=== PATIENT | female | born 1970 | race Caucasian/White ===

== ENCOUNTER 2019-06-21 18:14 | Inpatient (IN) | payer SELFPAY ==
[2019-06-21] MEDS ORDERED: Alum Hydrox/Mag Hydrox/Simeth 15 ML, Lidocaine 2% 5 ML PO ONE ×2 (18:35)
[2019-06-21] MEDS ORDERED: Sodium Chloride 0.9% 1,000 ML IV ONE (18:35)
[2019-06-21] MEDS ORDERED: Sodium Chloride 0.9% 2.5 ML Syringe FLUSH PRN (18:35)
[2019-06-21] MEDS ORDERED: Sodium Chloride 0.9% 10 ML Syringe FLUSH PRN (18:35)
--- NOTE | 2019-06-21 18:35 | EDM.PDOC ---
ED HPI GENERAL MEDICAL PROBLEM - General Chief Complaint: Abdominal Pain Stated Complaint: ABD PAIN Time Seen by Provider: 06/21/19 18:35 Source of Information: Reports: Patient History Limitations: Reports: No Limitations - History of Present Illness INITIAL COMMENTS - FREE TEXT/NARRATIVE: HISTORY AND PHYSICAL: History of present illness: Patient is a 48-year-old female presents to the ED with complaint of epigastric abdominal pain since yesterday. She was seen in the ER and wanted to yesterday but was told her labs were normal and did not have any imaging done. She said she has had nausea but no vomiting. She denies diarrhea, chest pain, shortness of breath, fevers, chills. Review of systems: As per history of present illness and below otherwise all systems reviewed and negative. Past medical history: As per history of present illness and as reviewed below otherwise noncontributory. Surgical history: As per history of present illness and as reviewed below otherwise noncontributory. Social history: No reported history of drug or alcohol abuse. Family history: As per history of present illness and as reviewed below otherwise noncontributory. Physical exam: General: Patient sitting comfortably in no acute distress and nontoxic appearing HEENT: Atraumatic, normocephalic, pupils reactive, negative for conjunctival pallor or scleral icterus, mucous membranes moist, throat clear, neck supple, nontender, trachea midline. No meningeal signs. Lungs: Clear to auscultation, breath sounds equal bilaterally, chest nontender. Heart: S1S2, regular, negative for clicks, rubs, or overt murmur. Abdomen: Epigastric tenderness to palpation. Soft, nondistended. Negative for masses or hepatosplenomegaly. Negative for costovertebral tenderness. No rigidity, rebound, guarding. Pelvis: Stable nontender. Genitourinary: Deferred. Rectal: Deferred. Extremities: Atraumatic, negative for cords or calf pain. Neurovascular unremarkable. Neuro: Awake, alert, oriented. Cranial nerves II through XII unremarkable. Cerebellum unremarkable. Motor and sensory unremarkable throughout. Exam nonfocal. Notes: Patient states that she has had severe reaction to IV contrast in the form of oral burning and swelling Diagnostics: CBC, CMP, lipase, UA, CT abdomen/pelvis Therapeutics: 1L NS IV GI Cocktail 30mg toradol IV IV Zosyn Prescriptions: Impression: Acute cholecystitis, leukocytosis Plan: Discussed with Dr. Ball, patient admitted to observation for IV antibiotics. Definitive disposition and diagnosis as appropriate pending reevaluation and review of above. abdomen Pain Score (Numeric/FACES): 8 - Related Data Allergies Allergy/AdvReac Type Severity Reaction Status Date / Time No Known Allergies Allergy Verified 06/21/19 18:58 Home Meds: Home Meds Dextroamphetamine/Amphetamine [Adderall] 30 mg PO DAILY 06/21/19 [History] Levothyroxine Sodium [Synthroid] 175 mcg PO DAILY 06/21/19 [History] Losartan [Cozaar] 50 mg PO DAILY 06/21/19 [History] hydroCHLOROthiazide [Hydrochlorothiazide] 25 mg PO DAILY 06/21/19 [History] metFORMIN HCl [Metformin HCl] 1,000 mg PO BID 06/21/19 [History] ED ROS GENERAL - Review of Systems Review Of Systems: ROS reveals no pertinent complaints other than HPI. ED EXAM, GI/ABD - Physical Exam Exam: See Below (see dictation) Course - Vital Signs Last Recorded V/S: Last Vital Signs Temp 98.5 F 06/21/19 18:50 Pulse 93 06/21/19 20:12 Resp 16 06/21/19 20:12 BP 154/72 H 06/21/19 20:12 Pulse Ox 95 06/21/19 20:12 - Orders/Labs/Meds Orders: Active Orders 24 hr Category Date Time Status Sodium Chloride 0.9% [Saline Flush] Med 06/21/19 18:35 Active 10 ml FLUSH ASDIRECTED PRN Sodium Chloride 0.9% [Saline Flush] Med 06/21/19 18:35 Active 2.5 ml FLUSH ASDIRECTED PRN Saline Lock Insert [OM.PC] Stat Oth 06/21/19 18:34 Ordered Medication Orders Sodium Chloride (Saline Flush) 10 ml FLUSH ASDIRECTED PRN PRN Reason: Keep Vein Open Sodium Chloride (Saline Flush) 2.5 ml FLUSH ASDIRECTED PRN PRN Reason: Keep Vein Open Labs: Laboratory Tests 06/21/19 06/21/19 06/21/19 Range/Units 18:50 18:50 19:20 WBC 19.10 H (4.0-11.0) K/uL RBC 4.80 (4.30-5.90) M/uL Hgb 14.2 (12.0-16.0) g/dL Hct 40.1 (36.0-46.0) % MCV 83.5 (80.0-98.0) fL MCH 29.6 (27.0-32.0) pg MCHC 35.4 (31.0-37.0) g/dL RDW Std Deviation 38.7 (28.0-62.0) fl RDW Coeff of [place] 13 (11.0-15.0) % Plt Count 280 (150-400) K/uL MPV 9.10 (7.40-12.00) fL Neut % (Auto) 80.8 H (48.0-80.0) % Lymph % (Auto) 9.8 L (16.0-40.0) % [place] % (Auto) 8.6 (0.0-15.0) % Eos % (Auto) 0.6 (0.0-7.0) % Baso % (Auto) 0.2 (0.0-1.5) % Neut # (Auto) 15.4 H (1.4-5.7) K/uL Lymph # (Auto) 1.9 (0.6-2.4) K/uL [place] # (Auto) 1.6 H (0.0-0.8) K/uL Eos # (Auto) 0.1 (0.0-0.7) K/uL Baso # (Auto) 0.0 (0.0-0.1) K/uL Nucleated RBC % 0.0 /100WBC Nucleated RBCs # 0 K/uL Sodium 136 (136-145) mmol/L Potassium 4.1 (3.5-5.1) mmol/L Chloride 99 (98-107) mmol/L Carbon Dioxide 29.0 (21.0-32.0) mmol/L BUN 10 (7.0-18.0) mg/dL Creatinine 1.0 (0.6-1.0) mg/dL Est Cr Clr Drug Dosing 70.16 mL/min Estimated GFR (MDRD) 59.4 ml/min Glucose 169 H (74-106) mg/dL Calcium 8.9 (8.5-10.1) mg/dL Total Bilirubin 1.0 (0.2-1.0) mg/dL AST 23 (15-37) IU/L ALT 46 (14-63) IU/L Alkaline Phosphatase 64 (46-116) U/L Troponin I < 0.050 (0.000-0.056) ng/mL Total Protein 7.7 (6.4-8.2) g/dL Albumin 3.7 (3.4-5.0) g/dL Globulin 4.0 (2.6-4.0) g/dL Albumin/Globulin Ratio 0.9 (0.9-1.6) Lipase 94 (73-393) U/L Urine Color YELLOW Urine Appearance CLEAR Urine pH 8.5 H (5.0-8.0) Ur Specific [place] 1.010 (1.001-1.035) Urine Protein NEGATIVE (NEGATIVE) mg/dL Urine Glucose (UA) NEGATIVE (NEGATIVE) mg/dL Urine Ketones NEGATIVE (NEGATIVE) mg/dL Urine Occult Blood NEGATIVE (NEGATIVE) Urine Nitrite NEGATIVE (NEGATIVE) Urine Bilirubin NEGATIVE (NEGATIVE) Urine Urobilinogen 0.2 (<2.0) EU/dL Ur Leukocyte Esterase NEGATIVE (NEGATIVE) Meds: Medications Generic Name Dose Route Start Last Admin Trade Name Freq PRN Reason Stop Dose Admin Sodium Chloride 10 ml 06/21/19 18:35 Saline Flush FLUSH ASDIRECTED PRN Keep Vein Open Sodium Chloride 2.5 ml 06/21/19 18:35 Saline Flush FLUSH ASDIRECTED PRN Keep Vein Open Discontinued Medications Generic Name Dose Route Start Last Admin Trade Name Freq PRN Reason Stop Dose Admin Al Hydroxide/Mg Hydroxide 15 0 ml 06/21/19 18:35 06/21/19 19:13 ml/ Lidocaine HCl 5 ml PO 06/21/19 18:36 1 each ONETIME ONE Administration Sodium Chloride 1,000 mls @ 999 mls/hr 06/21/19 18:35 06/21/19 19:11 Normal Saline IV 06/21/19 19:35 999 mls/hr STAT ONE Administration Ketorolac Tromethamine 30 mg 06/21/19 20:13 Toradol IVPUSH 06/21/19 20:14 ONETIME ONE Departure - Departure Time of Disposition: 20:43 Disposition: Refer to Observation Condition: Good Clinical Impression: Acute cholecystitis, Leukocytosis - Discharge Information Referrals: PCP,Not In Area [Primary Care Provider] - Forms: ED Department Discharge - My Orders Last 24 Hours: My Active Orders 06/21/19 18:34 Saline Lock Insert [OM.PC] Stat 06/21/19 18:35 Sodium Chloride 0.9% [Saline Flush] 10 ml FLUSH ASDIRECTED PRN Sodium Chloride 0.9% [Saline Flush] 2.5 ml FLUSH ASDIRECTED PRN - Assessment/Plan Last 24 Hours: My Active Orders 06/21/19 18:34 Saline Lock Insert [OM.PC] Stat 06/21/19 18:35 Sodium Chloride 0.9% [Saline Flush] 10 ml FLUSH ASDIRECTED PRN Sodium Chloride 0.9% [Saline Flush] 2.5 ml FLUSH ASDIRECTED PRN
[2019-06-21 19:31] LABS: BLOOD UREA NITROGEN,BUN 10 mg/dL (7.0-18.0); CHLORIDE,CL 99 mmol/L (98-107); GLUCOSE RANDOM 169 mg/dL (74-106); LIPASE 94 U/L (73-393); POTASSIUM,K 4.1 mmol/L (3.5-5.1); SODIUM,NA 136 mmol/L (136-145)
[2019-06-21] MEDS ORDERED: Ketorolac 30 MG/ML SDV IVPUSH ONE (20:13)
--- NOTE | 2019-06-21 20:16 | CT ---
INDICATION: Right upper quadrant abdominal pain. COMPARISON: None available TECHNIQUE: CT examination of the abdomen and pelvis was performed without contrast enhancement using 3 mm thick axial sections from the lung bases through the pubic symphysis. Oral contrast was not administered. Please note that all CT scans at this facility use dose modulation, iterative reconstruction, and/or weight-based dosing when appropriate to reduce radiation dose to as low as reasonably achievable. FINDINGS: In the abdomen, the liver is low in density, representing fatty infiltration. The liver is mildly and enlarged, measuring 21.7 centimeters in length. There is no sign of mass. The spleen, pancreas and adrenals are normal in appearance. There is a tiny nonobstructive calculus in the lower pole of the right kidney. There is a nonobstructive 4 millimeter calculus in the interpolar left kidney. The unenhanced kidneys are otherwise normal in appearance. There is no sign of hydronephrosis or hydroureter. There is no sign of ureteral calculi. The gallbladder is moderately distended, there is prominent thickening of the gallbladder wall, measuring up to 10 millimeters in thickness. There is mild pericholecystic inflammatory stranding. The findings suggest acute cholecystitis. I do not see any definite calculi in the gallbladder, but CT has a low sensitivity for cholelithiasis. No sign of biliary ductal dilatation. The abdominal aorta is normal in caliber with no sign of dilatation. There is no sign of retroperitoneal mass or adenopathy. The stomach, loops of small bowel, and colon in the abdomen are normal in appearance. In the pelvis, the appendix is normal in appearance with no sign of inflammatory process. The loops of small bowel and colon in the pelvis are normal in appearance. The uterus and adnexal regions are normal in appearance. The urinary bladder is normal in appearance. There is no sign of pelvic or inguinal mass or adenopathy. The lung bases are clear. The osseous structures are normal in appearance for the patient`s age. IMPRESSION: CT of the abdomen shows findings strongly suggestive of acute cholecystitis. No definite cholelithiasis seen. No sign of biliary ductal dilatation. The mild enlargement of the fatty liver. No sign of any hepatic masses. Bilateral nonobstructive nephrolithiasis with the largest calculus seen in the left kidney measuring 4 millimeters in diameter. Normal CT of the pelvis without contrast. Please note that all CT scans at this facility use dose modulation, iterative reconstruction, and/or weight-based dosing when appropriate to reduce radiation dose to as low as reasonably achievable. Dictated by Shaun Solis MD @ Jun 21 2019 8:08PM Signed by Dr. Shaun Solis @ Jun 21 2019 8:15PM
[2019-06-21] MEDS ORDERED: Piperacillin/Tazobactam 3.375 GM in Sodium Chloride 0.9% 50 ML IV ONE (20:31)
[2019-06-21] MEDS ORDERED: Ondansetron 4 MG/2 ML SDV IVPUSH PRN (21:36)
--- NOTE | 2019-06-21 21:38 | PCM.HP.2 ---
H&P History of Present Illness - General Date of Service: 06/21/19 Admit Problem/Dx: Admission Diagnosis/Problem Admission Diagnosis/Problem Acute cholecystitis - History of Present Illness Initial Comments - Free Text/Narative: 48 yo female who presents with two day history of abdominal pain, nausea and vomiting. She reports fevers and myalgias. IN the ED she was noted to have WBC of 19,[address] scan strongly suggestive of acute cholecystitis. abdomen Pain Score (Numeric/FACES): 8 - Related Data Allergies/Adverse Reactions: Allergies Allergy/AdvReac Type Severity Reaction Status Date / Time No Known Allergies Allergy Verified 06/21/19 22:27 Home Medications: Home Meds Cholecalciferol (Vitamin D3) [Vitamin D3] 1 tab PO DAILY 06/21/19 [History] Dextroamphetamine/Amphetamine [Adderall] 30 mg PO DAILY 06/21/19 [History] Levothyroxine Sodium [Synthroid] 175 mcg PO DAILY 06/21/19 [History] Losartan [Cozaar] 50 mg PO DAILY 06/21/19 [History] hydroCHLOROthiazide [Hydrochlorothiazide] 50 mg PO DAILY 06/21/19 [History] metFORMIN HCl [Metformin HCl] 1,000 mg PO BID 06/21/19 [History] Past Medical History Cardiovascular History: Reports: Hypertension Psychiatric History: Reports: ADD Endocrine/Metabolic History: Reports: Hypothyroidism, Other (See Below) Other Endocrine/Metabolic History: pre-diabetes Oncologic (Cancer) History: Reports: Thyroid - Past Surgical History Endocrine Surgical History: Reports: Thyroidectomy Musculoskeletal Surgical History: Reports: Shoulder Surgery Social & Family History - Family History Family Medical History: Noncontributory - Tobacco Use Smoking Status *Q: Never Smoker - Recreational Drug Use Recreational Drug Use: No H&P Review of Systems - Review of Systems: Review Of Systems: ROS reveals no pertinent complaints other than HPI. Exam - Exam Exam: See Below - Vital Signs Vital Signs: Last Vital Signs Temp 36.9 C 06/21/19 18:50 Pulse 93 06/21/19 20:12 Resp 16 06/21/19 20:12 BP 154/72 H 06/21/19 20:12 Pulse Ox 95 06/21/19 20:12 Weight: 86.183 kg - Exam General: Alert, Oriented HEENT: Mucosa Moist & [place] Neck: Supple, Trachea Midline Lungs: Clear to Auscultation, Normal Respiratory Effort Cardiovascular: Regular Rate, Regular Rhythm GI/Abdominal Exam: Normal Bowel Sounds, Soft, No Distention, Tender (RUQ tenderness). No: Rigid, Rebound Extremities: Non-Tender, No Pedal Edema Skin: Warm, Dry, Intact - Patient Data Lab Results Last 24 hrs: Laboratory Results - last 24 hr 06/21/19 06/21/19 06/21/19 Range/Units 18:50 18:50 19:20 WBC 19.10 H (4.0-11.0) K/uL RBC 4.80 (4.30-5.90) M/uL Hgb 14.2 (12.0-16.0) g/dL Hct 40.1 (36.0-46.0) % MCV 83.5 (80.0-98.0) fL MCH 29.6 (27.0-32.0) pg MCHC 35.4 (31.0-37.0) g/dL RDW Std Deviation 38.7 (28.0-62.0) fl RDW Coeff of [place] 13 (11.0-15.0) % Plt Count 280 (150-400) K/uL MPV 9.10 (7.40-12.00) fL Neut % (Auto) 80.8 H (48.0-80.0) % Lymph % (Auto) 9.8 L (16.0-40.0) % [place] % (Auto) 8.6 (0.0-15.0) % Eos % (Auto) 0.6 (0.0-7.0) % Baso % (Auto) 0.2 (0.0-1.5) % Neut # (Auto) 15.4 H (1.4-5.7) K/uL Lymph # (Auto) 1.9 (0.6-2.4) K/uL [place] # (Auto) 1.6 H (0.0-0.8) K/uL Eos # (Auto) 0.1 (0.0-0.7) K/uL Baso # (Auto) 0.0 (0.0-0.1) K/uL Nucleated RBC % 0.0 /100WBC Nucleated RBCs # 0 K/uL Sodium 136 (136-145) mmol/L Potassium 4.1 (3.5-5.1) mmol/L Chloride 99 (98-107) mmol/L Carbon Dioxide 29.0 (21.0-32.0) mmol/L BUN 10 (7.0-18.0) mg/dL Creatinine 1.0 (0.6-1.0) mg/dL Est Cr Clr Drug Dosing 70.16 mL/min Estimated GFR (MDRD) 59.4 ml/min Glucose 169 H (74-106) mg/dL Calcium 8.9 (8.5-10.1) mg/dL Total Bilirubin 1.0 (0.2-1.0) mg/dL AST 23 (15-37) IU/L ALT 46 (14-63) IU/L Alkaline Phosphatase 64 (46-116) U/L Troponin I < 0.050 (0.000-0.056) ng/mL Total Protein 7.7 (6.4-8.2) g/dL Albumin 3.7 (3.4-5.0) g/dL Globulin 4.0 (2.6-4.0) g/dL Albumin/Globulin Ratio 0.9 (0.9-1.6) Lipase 94 (73-393) U/L Urine Color YELLOW Urine Appearance CLEAR Urine pH 8.5 H (5.0-8.0) Ur Specific [place] 1.010 (1.001-1.035) Urine Protein NEGATIVE (NEGATIVE) mg/dL Urine Glucose (UA) NEGATIVE (NEGATIVE) mg/dL Urine Ketones NEGATIVE (NEGATIVE) mg/dL Urine Occult Blood NEGATIVE (NEGATIVE) Urine Nitrite NEGATIVE (NEGATIVE) Urine Bilirubin NEGATIVE (NEGATIVE) Urine Urobilinogen 0.2 (<2.0) EU/dL Ur Leukocyte Esterase NEGATIVE (NEGATIVE) Result Diagrams: 06/22/19 06:23 06/22/19 06:23 Problem List Initiated/Reviewed/Updated: Yes Orders Last 24hrs: Active Orders 24 hr Category Date Time Status Admission Status [Patient Status] [ADT] Stat ADT 06/21/19 20:54 Active CULTURE BLOOD [BC] Stat Lab 06/21/19 21:29 Ordered CULTURE BLOOD [BC] Stat Lab 06/21/19 21:29 Ordered LACTATE WITH REFLEX [BG] Stat Lab 06/21/19 21:26 Ordered HYDROmorphone [Dilaudid] Med 06/21/19 21:23 Ordered 0.5 mg IVPUSH Q3H PRN Piperacillin/Tazobactam [Piperacil-Tazobact] 3.375 gm Med 06/22/19 02:00 Ordered Sodium Chloride 0.9% [Normal Saline] 50 ml IV Q6H Sodium Chloride 0.9% [Saline Flush] Med 06/21/19 18:35 Active 10 ml FLUSH ASDIRECTED PRN Sodium Chloride 0.9% [Saline Flush] Med 06/21/19 18:35 Active 2.5 ml FLUSH ASDIRECTED PRN Blood Culture x2 Reflex Set [OM.PC] Stat Oth 06/21/19 21:29 Ordered Saline Lock Insert [OM.PC] Stat Oth 06/21/19 18:34 Ordered Medication Orders Hydromorphone HCl (Dilaudid) 0.5 mg IVPUSH Q3H PRN PRN Reason: Pain Piperacillin Sod/Tazobactam (Sod 3.375 gm/ Sodium Chloride) 50 mls @ 100 mls/ hr IV Q6H [place] Sodium Chloride (Saline Flush) 10 ml FLUSH ASDIRECTED PRN PRN Reason: Keep Vein Open Sodium Chloride (Saline Flush) 2.5 ml FLUSH ASDIRECTED PRN PRN Reason: Keep Vein Open Assessment/Plan Comment:: 48 yo female admitted for sepsis from cholecystitis. Lactic acid and blood cultures ordered. We will treat with IV fluid resuscitation and Zosyn. Will check ultrasound of RUQ. Heart rate has improved with IV fluids given in ED.
[2019-06-21] MEDS: Sodium Chloride 0.9% 1,000 ML IV SCH (22:21)
[2019-06-21] MEDS: Heparin Sodium 5,000 Units/ML Vial SUBCUT SCH (22:21)
[2019-06-21] MEDS: HYDROmorphone 1 MG/ML Syringe IVPUSH PRN (22:46)
[2019-06-22] MEDS: Piperacillin/Tazobactam 3.375 GM in Sodium Chloride 0.9% 50 ML IV SCH ×4 (01:59→20:31)
[2019-06-22] MEDS: HYDROmorphone 1 MG/ML Syringe IVPUSH PRN ×4 (01:59→22:09)
[2019-06-22] MEDS: Heparin Sodium 5,000 Units/ML Vial SUBCUT SCH ×3 (06:07→20:46)
[2019-06-22] MEDS: Sodium Chloride 0.9% 1,000 ML IV SCH ×3 (06:09→23:53)
[2019-06-22 07:01] LABS: CARBON DIOXIDE,CO2 26.5 mmol/L (21.0-32.0); POTASSIUM,K 3.8 mmol/L (3.5-5.1)
--- NOTE | 2019-06-22 08:55 | US ---
INDICATION: RUQ PAINCHOLECYSTITIS HISTORY: Abnormal CT scan. Cholecystitis is packed it. COMPARISON: CT of the abdomen and pelvis, 06/21/2019. TECHNIQUE: Ultrasound of the abdomen limited. FINDINGS: Pancreas is largely obscured, and this is secondary to bowel gas. There is diffuse hepatic steatosis. Gallstones, with gallbladder wall thickening. Gallbladder wall measures up to 9 mm. There is pericholecystic fluid. Positive sonographic Demarco`s sign. The extrahepatic common duct measures 4 mm at the adriel hepatis. Diffuse hepatic steatosis. No solid hepatic mass. Right kidney is negative for hydronephrosis or solid mass. No perinephric fluid collection. Right kidney measures 11.4 cm in length. IMPRESSION: 1. Cholelithiasis, with a positive sonographic Demarco`s sign, gallbladder wall thickening, and either pericholecystic fluid or intramural edema. 2. Findings are consistent with cholecystitis. 3. Normal caliber biliary tree. Dictated by Collin Yan MD @ 06/22/2019 8:53:41 AM Dictated by: Collin Yan MD @ 06/22/2019 08:53:49 (Electronically Signed)
--- NOTE | 2019-06-22 14:00 | PCM.SN ---
- Free Text/Narrative Note: Pt seen, chart reviewed; likely cholecystitis without obstruction; would cool down w iv abx as you are doing, and tentatively schedule for surg after 48 hrs, ie. Thursday morning; pls hole subq heparin after morning dose tomorrow; and ok to put on full liquid diet, low fat, tomorrow, then nPO after midnight for surg on Thu; thanks for the consult and care of this nice patient; [id number]
[2019-06-22] MEDS: Acetaminophen 325 MG Tab PO PRN ×2 (15:22→20:36)
--- NOTE | 2019-06-22 16:06 | PCM.PN ---
- General Info Date of Service: 06/22/19 Subjective Update: 48 y/o female admitted for acute cholecystitis. This morning, patient's abdominal pain had decreased but still worse with movement. Denies any chest pain, dyspnea, dysuria, diarrhea. - Patient Data Vitals - Most Recent: Last Vital Signs Temp 37 C 06/22/19 13:00 Pulse 102 H 06/22/19 13:00 Resp 20 06/22/19 13:00 BP 106/50 L 06/22/19 13:00 Pulse Ox 92 L 06/22/19 13:00 Weight - Most Recent: 84.822 kg I&O - Last 24 Hours: Intake & Output 06/22/19 06/22/19 06/22/19 06:59 14:59 22:59 Intake Total 737 100 980 Output Total 150 1200 Balance 587 100 -220 Lab Results Last 24 Hours: Laboratory Results - last 24 hr 06/21/19 06/21/19 06/21/19 Range/Units 18:50 18:50 19:20 WBC 19.10 H (4.0-11.0) K/uL RBC 4.80 (4.30-5.90) M/uL Hgb 14.2 (12.0-16.0) g/dL Hct 40.1 (36.0-46.0) % MCV 83.5 (80.0-98.0) fL MCH 29.6 (27.0-32.0) pg MCHC 35.4 (31.0-37.0) g/dL RDW Std Deviation 38.7 (28.0-62.0) fl RDW Coeff of [place] 13 (11.0-15.0) % Plt Count 280 (150-400) K/uL MPV 9.10 (7.40-12.00) fL Neut % (Auto) 80.8 H (48.0-80.0) % Lymph % (Auto) 9.8 L (16.0-40.0) % [place] % (Auto) 8.6 (0.0-15.0) % Eos % (Auto) 0.6 (0.0-7.0) % Baso % (Auto) 0.2 (0.0-1.5) % Neut # (Auto) 15.4 H (1.4-5.7) K/uL Lymph # (Auto) 1.9 (0.6-2.4) K/uL [place] # (Auto) 1.6 H (0.0-0.8) K/uL Eos # (Auto) 0.1 (0.0-0.7) K/uL Baso # (Auto) 0.0 (0.0-0.1) K/uL Nucleated RBC % 0.0 /100WBC Nucleated RBCs # 0 K/uL Lactate (0.20-2.00) mmol/L Sodium 136 (136-145) mmol/L Potassium 4.1 (3.5-5.1) mmol/L Chloride 99 (98-107) mmol/L Carbon Dioxide 29.0 (21.0-32.0) mmol/L BUN 10 (7.0-18.0) mg/dL Creatinine 1.0 (0.6-1.0) mg/dL Est Cr Clr Drug Dosing 70.16 mL/min Estimated GFR (MDRD) 59.4 ml/min Glucose 169 H (74-106) mg/dL Calcium 8.9 (8.5-10.1) mg/dL Total Bilirubin 1.0 (0.2-1.0) mg/dL AST 23 (15-37) IU/L ALT 46 (14-63) IU/L Alkaline Phosphatase 64 (46-116) U/L Troponin I < 0.050 (0.000-0.056) ng/mL Total Protein 7.7 (6.4-8.2) g/dL Albumin 3.7 (3.4-5.0) g/dL Globulin 4.0 (2.6-4.0) g/dL Albumin/Globulin Ratio 0.9 (0.9-1.6) Lipase 94 (73-393) U/L Urine Color YELLOW Urine Appearance CLEAR Urine pH 8.5 H (5.0-8.0) Ur Specific [place] 1.010 (1.001-1.035) Urine Protein NEGATIVE (NEGATIVE) mg/dL Urine Glucose (UA) NEGATIVE (NEGATIVE) mg/dL Urine Ketones NEGATIVE (NEGATIVE) mg/dL Urine Occult Blood NEGATIVE (NEGATIVE) Urine Nitrite NEGATIVE (NEGATIVE) Urine Bilirubin NEGATIVE (NEGATIVE) Urine Urobilinogen 0.2 (<2.0) EU/dL Ur Leukocyte Esterase NEGATIVE (NEGATIVE) 06/21/19 06/22/19 06/22/19 Range/Units 21:47 01:01 06:23 WBC 15.43 H (4.0-11.0) K/uL RBC 4.36 (4.30-5.90) M/uL Hgb 13.0 (12.0-16.0) g/dL Hct 37.0 (36.0-46.0) % MCV 84.9 (80.0-98.0) fL MCH 29.8 (27.0-32.0) pg MCHC 35.1 (31.0-37.0) g/dL RDW Std Deviation 39.2 (28.0-62.0) fl RDW Coeff of [place] 13 (11.0-15.0) % Plt Count 234 (150-400) K/uL MPV 8.90 (7.40-12.00) fL Neut % (Auto) 81.6 H (48.0-80.0) % Lymph % (Auto) 9.7 L (16.0-40.0) % [place] % (Auto) 7.8 (0.0-15.0) % Eos % (Auto) 0.8 (0.0-7.0) % Baso % (Auto) 0.1 (0.0-1.5) % Neut # (Auto) 12.6 H (1.4-5.7) K/uL Lymph # (Auto) 1.5 (0.6-2.4) K/uL [place] # (Auto) 1.2 H (0.0-0.8) K/uL Eos # (Auto) 0.1 (0.0-0.7) K/uL Baso # (Auto) 0.0 (0.0-0.1) K/uL Nucleated RBC % 0.0 /100WBC Nucleated RBCs # 0 K/uL Lactate 2.3 H 1.1 (0.20-2.00) mmol/L Sodium (136-145) mmol/L Potassium (3.5-5.1) mmol/L Chloride (98-107) mmol/L Carbon Dioxide (21.0-32.0) mmol/L BUN (7.0-18.0) mg/dL Creatinine (0.6-1.0) mg/dL Est Cr Clr Drug Dosing mL/min Estimated GFR (MDRD) ml/min Glucose (74-106) mg/dL Calcium (8.5-10.1) mg/dL Total Bilirubin (0.2-1.0) mg/dL AST (15-37) IU/L ALT (14-63) IU/L Alkaline Phosphatase (46-116) U/L Troponin I (0.000-0.056) ng/mL Total Protein (6.4-8.2) g/dL Albumin (3.4-5.0) g/dL Globulin (2.6-4.0) g/dL Albumin/Globulin Ratio (0.9-1.6) Lipase (73-393) U/L Urine Color Urine Appearance Urine pH (5.0-8.0) Ur Specific [place] (1.001-1.035) Urine Protein (NEGATIVE) mg/dL Urine Glucose (UA) (NEGATIVE) mg/dL Urine Ketones (NEGATIVE) mg/dL Urine Occult Blood (NEGATIVE) Urine Nitrite (NEGATIVE) Urine Bilirubin (NEGATIVE) Urine Urobilinogen (<2.0) EU/dL Ur Leukocyte Esterase (NEGATIVE) 06/22/19 Range/Units 06:23 WBC (4.0-11.0) K/uL RBC (4.30-5.90) M/uL Hgb (12.0-16.0) g/dL Hct (36.0-46.0) % MCV (80.0-98.0) fL MCH (27.0-32.0) pg MCHC (31.0-37.0) g/dL RDW Std Deviation (28.0-62.0) fl RDW Coeff of [place] (11.0-15.0) % Plt Count (150-400) K/uL MPV (7.40-12.00) fL Neut % (Auto) (48.0-80.0) % Lymph % (Auto) (16.0-40.0) % [place] % (Auto) (0.0-15.0) % Eos % (Auto) (0.0-7.0) % Baso % (Auto) (0.0-1.5) % Neut # (Auto) (1.4-5.7) K/uL Lymph # (Auto) (0.6-2.4) K/uL [place] # (Auto) (0.0-0.8) K/uL Eos # (Auto) (0.0-0.7) K/uL Baso # (Auto) (0.0-0.1) K/uL Nucleated RBC % /100WBC Nucleated RBCs # K/uL Lactate (0.20-2.00) mmol/L Sodium 139 (136-145) mmol/L Potassium 3.8 (3.5-5.1) mmol/L Chloride 103 (98-107) mmol/L Carbon Dioxide 26.5 (21.0-32.0) mmol/L BUN 10 (7.0-18.0) mg/dL Creatinine 1.1 H (0.6-1.0) mg/dL Est Cr Clr Drug Dosing 63.78 mL/min Estimated GFR (MDRD) 53.2 ml/min Glucose 153 H (74-106) mg/dL Calcium 7.6 L (8.5-10.1) mg/dL Total Bilirubin 1.3 H (0.2-1.0) mg/dL AST 18 (15-37) IU/L ALT 38 (14-63) IU/L Alkaline Phosphatase 54 (46-116) U/L Troponin I (0.000-0.056) ng/mL Total Protein 6.3 L (6.4-8.2) g/dL Albumin 3.1 L (3.4-5.0) g/dL Globulin 3.2 (2.6-4.0) g/dL Albumin/Globulin Ratio 1.0 (0.9-1.6) Lipase (73-393) U/L Urine Color Urine Appearance Urine pH (5.0-8.0) Ur Specific [place] (1.001-1.035) Urine Protein (NEGATIVE) mg/dL Urine Glucose (UA) (NEGATIVE) mg/dL Urine Ketones (NEGATIVE) mg/dL Urine Occult Blood (NEGATIVE) Urine Nitrite (NEGATIVE) Urine Bilirubin (NEGATIVE) Urine Urobilinogen (<2.0) EU/dL Ur Leukocyte Esterase (NEGATIVE) Med Orders - Current: Current Medications Acetaminophen (Tylenol) 650 mg PO Q4H PRN PRN Reason: Pain Last Admin: 06/22/19 15:22 Dose: 650 mg Heparin Sodium (Porcine) (Heparin Sodium) 5,000 units SUBCUT Q8H HARLE[facility] Last Admin: 06/22/19 13:41 Dose: 5,000 units Hydromorphone HCl (Dilaudid) 0.5 mg IVPUSH Q3H PRN PRN Reason: Pain Last Admin: 06/22/19 13:23 Dose: 0.5 mg Piperacillin Sod/Tazobactam (Sod 3.375 gm/ Sodium Chloride) 50 mls @ 100 mls/ hr IV Q6H [facility] Last Admin: 06/22/19 14:26 Dose: 100 mls/hr Sodium Chloride (Normal Saline) 1,000 mls @ 125 mls/hr IV ASDIRECTED HARLEEN Last Admin: 06/22/19 15:24 Dose: 125 mls/hr Ondansetron HCl (Zofran) 4 mg IVPUSH Q4H PRN PRN Reason: Nausea Sodium Chloride (Saline Flush) 10 ml FLUSH ASDIRECTED PRN PRN Reason: Keep Vein Open Sodium Chloride (Saline Flush) 2.5 ml FLUSH ASDIRECTED PRN PRN Reason: Keep Vein Open Discontinued Medications Al Hydroxide/Mg Hydroxide 15 (ml/ Lidocaine HCl 5 ml) 0 ml PO ONETIME ONE Stop: 06/21/19 18:36 Last Admin: 06/21/19 19:13 Dose: 1 each Sodium Chloride (Normal Saline) 1,000 mls @ 999 mls/hr IV STAT ONE Stop: 06/21/19 19:35 Last Admin: 06/21/19 19:11 Dose: 999 mls/hr Piperacillin Sod/Tazobactam (Sod 3.375 gm/ Sodium Chloride) 50 mls @ 100 mls/ hr IV ONETIME ONE Stop: 06/21/19 21:00 Last Admin: 06/21/19 21:00 Dose: 100 mls/hr Ketorolac Tromethamine (Toradol) 30 mg IVPUSH ONETIME ONE Stop: 06/21/19 20:14 Last Admin: 06/21/19 21:00 Dose: 30 mg - Exam General: Alert, Oriented, Cooperative Lungs: Clear to Auscultation. No: Crackles, Wheezing Cardiovascular: Regular Rhythm, Tachycardia GI/Abdominal Exam: Other (Tender in RUQ. No rebound. Active bowel sounds.) Extremities: No Pedal Edema Skin: Warm, Dry - Problem List Review Problem List Initiated/Reviewed/Updated: Yes - My Orders Last 24 Hours: My Active Orders 06/22/19 11:40 Notify Provider Consults [RC] ASDIRECTED Consult to Physician [CONS] Routine - Plan Plan:: A: 1. Sepsis 2/2 acute cholecystitis 2. Leukocytosis, improving P: 1. Acute cholecystitis- consulted with Dr. Coronel, General Surgery. He will plan to perform cholecystectomy on Thursday. In the meantime, patient will remain NPO only ice chips. Continue pain control, IV fluids and Zosyn. Dispo: pending improvement in abdominal pain.
--- NOTE | 2019-06-22 17:57 | CONS ---
DATE OF CONSULTATION: DATE OF : 1970 PRIMARY CARE PHYSICIAN: Christie BECERRIL REASON FOR CONSULTATION: Consult was called and the patient is seen shortly after. Concerning question is acute cholecystitis. HISTORY OF PRESENT ILLNESS: The patient is a 48-year-old lady with history of thyroid cancer, on thyroid supplement, complained about 3-day history of acute onset of right upper quadrant pain radiating to the back. The patient denied prior episode and denied jaundice, dark urine, and white stool. She had been in the emergency room yesterday and workup included CAT scan and ultrasound, which revealed thickened gallbladder wall, gallstone, and pericholecystic fluid. White count is 15, T.bilirubin is 1.3. AST and ALT are 18 and 38, alkaline phosphatase is 54. Surgery was consulted for further management. ALLERGIES: Please refer to nursing note for details. MEDICATIONS: Please refer to nursing note for details. FAMILY HISTORY: Noncontributory. SOCIAL HISTORY: Patient denies tobacco, alcohol abuse. PAST MEDICAL HISTORY: Significant for thyroid cancer, status post total thyroid resection with nuclear ablation. Denied PA, CVA, hypertension. The patient also is a diabetic, on 2 g metformin everyday. PAST SURGICAL HISTORY: 1. Thyroid surgery. 2. Normal vaginal delivery x2. 3. Left shoulder surgery. 4. Ovarian cystectomy x2. PHYSICAL EXAMINATION: GENERAL: A very pleasant lady, smiled to the doctor, in no acute distress. HEENT: Normocephalic and atraumatic. Sclerae anicteric. LUNGS: Clear to auscultation. HEART: Regular rate and rhythm. ABDOMEN: Soft, nondistended. No pulsating tender midline abdominal structure, and no surgical scar. No hernia. Exquisite tenderness on the right lower quadrant, no rebound tenderness. LABORATORY DATA: White count 15, platelet 230. Lactate is 1.1. Potassium is 3.8, BUN is 10, creatinine is 1.1, glucose is 153, T. bilirubin is 1.3. AST and ALT are 18 and 38, alkaline phosphatase is 54, lipase is 94. Ultrasound report: Cholelithiasis with pericholecystic fluid and cholestatic fluid, normal caliber biliary tree. CAT scan, mild enlargement with fatty liver and nonobstructing kidney stone. IMPRESSION: Physical examination and imaging study suggest possible cholecystitis with wall thickening to about 9 mm. The patient would benefit from IV antibiotic cool down the gallbladder and we will tentatively put the patient's surgery on Thursday provided the patient responds to antibiotic and pain management and benefit is to proceed with gallbladder surgery. Risks to include bleeding, infection, and bile leak plus damage to reproductive organ. The patient concurred to proceed as planned. Thanks for the consult and care of this present patient. We will tentatively schedule her Thursday after two days of IV antibiotic and please hold subcu heparin after the morning dose tomorrow. We will follow the patient with you. As always, thank you for the kind referral. WADE HUGHES /[id number] [place]
[2019-06-23] MEDS: Piperacillin/Tazobactam 3.375 GM in Sodium Chloride 0.9% 50 ML IV SCH ×4 (01:47→20:09)
[2019-06-23] MEDS: HYDROmorphone 1 MG/ML Syringe IVPUSH PRN ×3 (04:16→11:58)
[2019-06-23] MEDS: Heparin Sodium 5,000 Units/ML Vial SUBCUT SCH (06:01)
[2019-06-23 06:52] LABS: BLOOD UREA NITROGEN,BUN 7 mg/dL (7.0-18.0); CARBON DIOXIDE,CO2 23.9 mmol/L (21.0-32.0); CHLORIDE,CL 106 mmol/L (98-107); GLUCOSE RANDOM 132 mg/dL (74-106); POTASSIUM,K 3.7 mmol/L (3.5-5.1); SODIUM,NA 142 mmol/L (136-145)
[2019-06-23] MEDS: Sodium Chloride 0.9% 1,000 ML IV SCH (08:46)
--- NOTE | 2019-06-23 10:02 | PCM.SN ---
- Free Text/Narrative Note: Pain improved a bit, but wbc went up to 18, and running a temp; scheduled her surgery as add on today, for cholecystectomy, laparoscopic vs open; keep NPO, hold off heparin; ok to have small amount of ice chips
[2019-06-23] MEDS ORDERED: Dexamethasone 4 MG/ML 5 ML MDV ONE (11:59)
[2019-06-23] MEDS ORDERED: Ondansetron 4 MG/2 ML SDV ONE (11:59)
[2019-06-23] MEDS ORDERED: fentaNYL 100 MCG/2 ML SDV ONE (11:59)
[2019-06-23] MEDS ORDERED: Propofol 200 MG/20 ML SDV ONE (11:59)
[2019-06-23] MEDS ORDERED: Scopolamine 1.5 MG Transdermal Patch TRDERM PRN (12:08)
--- NOTE | 2019-06-23 12:08 | PCM.PREANE ---
Preanesthetic Assessment - Anesthesia/Transfusion/Family Hx Anesthesia History: Prior Anesthesia Without Reaction Family History of Anesthesia Reaction: No Transfusion History: No Prior Transfusion(s) Intubation History: Unknown - Review of Systems General: No Symptoms Pulmonary: No Symptoms Cardiovascular: No Symptoms Gastrointestinal: Abdominal Pain Neurological: No Symptoms Other: Reports: None - Physical Assessment Vital Signs: Last Vital Signs Temp 37.4 C 06/23/19 07:20 Pulse 106 H 06/23/19 07:20 Resp 17 06/23/19 07:20 BP 117/73 06/23/19 07:20 Pulse Ox 95 06/23/19 07:20 Height: 5 ft 8 in Weight: 86.183 kg ASA Class: 2E Mental Status: Alert & Oriented x3 Airway Class: Mallampati = 2 Dentition: Reports: Normal Dentition, [address](s) (x1 upper right (back)), Broken Tooth/Teeth (right upper x1 (back)) Thyro-Mental Finger Breadths: 3 Mouth Opening Finger Breadths: 3 ROM/Head Extension: Full Lungs: Clear to Auscultation, Normal Respiratory Effort Cardiovascular: Regular Rate, Regular Rhythm - Lab Values: Laboratory Last Values WBC 18.52 K/uL (4.0-11.0) H 06/23/19 06:08 RBC 4.12 M/uL (4.30-5.90) L 06/23/19 06:08 Hgb 12.2 g/dL (12.0-16.0) 06/23/19 06:08 Hct 35.1 % (36.0-46.0) L 06/23/19 06:08 MCV 85.2 fL (80.0-98.0) 06/23/19 06:08 MCH 29.6 pg (27.0-32.0) 06/23/19 06:08 MCHC 34.8 g/dL (31.0-37.0) 06/23/19 06:08 RDW Std Deviation 40.0 fl (28.0-62.0) 06/23/19 06:08 RDW Coeff of [place] 13 % (11.0-15.0) 06/23/19 06:08 Plt Count 217 K/uL (150-400) 06/23/19 06:08 MPV 9.40 fL (7.40-12.00) 06/23/19 06:08 Neut % (Auto) 87.8 % (48.0-80.0) H 06/23/19 06:08 Lymph % (Auto) 5.6 % (16.0-40.0) L 06/23/19 06:08 [place] % (Auto) 6.4 % (0.0-15.0) 06/23/19 06:08 Eos % (Auto) 0.1 % (0.0-7.0) 06/23/19 06:08 Baso % (Auto) 0.1 % (0.0-1.5) 06/23/19 06:08 Neut # (Auto) 16.3 K/uL (1.4-5.7) H 06/23/19 06:08 Lymph # (Auto) 1.0 K/uL (0.6-2.4) 06/23/19 06:08 [place] # (Auto) 1.2 K/uL (0.0-0.8) H 06/23/19 06:08 Eos # (Auto) 0.0 K/uL (0.0-0.7) 06/23/19 06:08 Baso # (Auto) 0.0 K/uL (0.0-0.1) 06/23/19 06:08 Nucleated RBC % 0.0 /100WBC 06/23/19 06:08 Nucleated RBCs # 0 K/uL 06/23/19 06:08 Lactate 1.1 mmol/L (0.20-2.00) 06/22/19 01:01 Sodium 142 mmol/L (136-145) 06/23/19 06:08 Potassium 3.7 mmol/L (3.5-5.1) 06/23/19 06:08 Chloride 106 mmol/L (98-107) 06/23/19 06:08 Carbon Dioxide 23.9 mmol/L (21.0-32.0) 06/23/19 06:08 BUN 7 mg/dL (7.0-18.0) 06/23/19 06:08 Creatinine 0.9 mg/dL (0.6-1.0) 06/23/19 06:08 Est Cr Clr Drug Dosing 77.95 mL/min 06/23/19 06:08 Estimated GFR (MDRD) > 60.0 ml/min 06/23/19 06:08 Glucose 132 mg/dL (74-106) H 06/23/19 06:08 Calcium 7.5 mg/dL (8.5-10.1) L 06/23/19 06:08 Total Bilirubin 0.8 mg/dL (0.2-1.0) 06/23/19 06:08 AST 14 IU/L (15-37) L 06/23/19 06:08 ALT 26 IU/L (14-63) 06/23/19 06:08 Alkaline Phosphatase 57 U/L (46-116) 06/23/19 06:08 Troponin I < 0.050 ng/mL (0.000-0.056) 06/21/19 18:50 Total Protein 6.4 g/dL (6.4-8.2) 06/23/19 06:08 Albumin 2.5 g/dL (3.4-5.0) L 06/23/19 06:08 Globulin 3.9 g/dL (2.6-4.0) 06/23/19 06:08 Albumin/Globulin Ratio 0.6 (0.9-1.6) L 06/23/19 06:08 Lipase 94 U/L (73-393) 06/21/19 18:50 Urine Color YELLOW 06/21/19 19:20 Urine Appearance CLEAR 06/21/19 19:20 Urine pH 8.5 (5.0-8.0) H 06/21/19 19:20 Ur Specific [place] 1.010 (1.001-1.035) 06/21/19 19:20 Urine Protein NEGATIVE mg/dL (NEGATIVE) 06/21/19 19:20 Urine Glucose (UA) NEGATIVE mg/dL (NEGATIVE) 06/21/19 19:20 Urine Ketones NEGATIVE mg/dL (NEGATIVE) 06/21/19 19:20 Urine Occult Blood NEGATIVE (NEGATIVE) 06/21/19 19:20 Urine Nitrite NEGATIVE (NEGATIVE) 06/21/19 19:20 Urine Bilirubin NEGATIVE (NEGATIVE) 06/21/19 19:20 Urine Urobilinogen 0.2 EU/dL (<2.0) 06/21/19 19:20 Ur Leukocyte Esterase NEGATIVE (NEGATIVE) 06/21/19 19:20 Urine HCG, Qual NEGATIVE (NEGATIVE) 06/23/19 11:10 - Allergies Allergies/Adverse Reactions: Allergies Allergy/AdvReac Type Severity Reaction Status Date / Time No Known Allergies Allergy Verified 06/21/19 22:27 - Blood Blood Available: No - Anesthesia Plan Pre-Op Medication Ordered: None - Acknowledgements Anesthesia Type Planned: General Anesthesia Pt an Appropriate Candidate for the Planned Anesthesia: Yes Alternatives and Risks of Anesthesia Discussed w Pt/Guardian: Yes Pt/Guardian Understands and Agrees with Anesthesia Plan: Yes PreAnesthesia Questionnaire Cardiovascular History: Reports: Hypertension [employer] History: Reports: Polycystic Ovaries Neurological History: Reports: Neuropathy, Peripheral, Other (See Below) Other Neuro History: Raynaud's Psychiatric History: Reports: ADD Endocrine/Metabolic History: Reports: Hypothyroidism, Other (See Below) Other Endocrine/Metabolic History: pre-diabetes Oncologic (Cancer) History: Reports: Thyroid - Infectious Disease History Infectious Disease History: Reports: C-Difficile - Past Surgical History Female Surgical History: Reports: Cystectomy (bilat. overian cystectomy) Endocrine Surgical History: Reports: Thyroidectomy Musculoskeletal Surgical History: Reports: Shoulder Surgery - SUBSTANCE USE Smoking Status *Q: Never Smoker Second Hand Smoke Exposure: No Recreational Drug Use History: No - HOME MEDS Home Medications: Home Meds Cholecalciferol (Vitamin D3) [Vitamin D3] 1 tab PO DAILY 06/21/19 [History] Dextroamphetamine/Amphetamine [Adderall] 30 mg PO DAILY 06/21/19 [History] Levothyroxine Sodium [Synthroid] 175 mcg PO DAILY 06/21/19 [History] Losartan [Cozaar] 50 mg PO DAILY 06/21/19 [History] hydroCHLOROthiazide [Hydrochlorothiazide] 50 mg PO DAILY 06/21/19 [History] metFORMIN HCl [Metformin HCl] 1,000 mg PO BID 06/21/19 [History] - CURRENT (IN HOUSE) MEDS Current Meds: Current Medications Acetaminophen (Tylenol) 650 mg PO Q4H PRN PRN Reason: Pain Last Admin: 06/22/19 20:36 Dose: 650 mg Hydromorphone HCl (Dilaudid) 0.5 mg IVPUSH Q3H PRN PRN Reason: Pain Last Admin: 06/23/19 11:58 Dose: 0.5 mg Piperacillin Sod/Tazobactam (Sod 3.375 gm/ Sodium Chloride) 50 mls @ 100 mls/ hr IV Q6H HARLEEN Last Admin: 06/23/19 08:47 Dose: 100 mls/hr Sodium Chloride (Normal Saline) 1,000 mls @ 125 mls/hr IV CONTINUOUS HARLEEN Last Infusion: 06/23/19 10:00 Dose: 150 mls/hr Ondansetron HCl (Zofran) 4 mg IVPUSH Q4H PRN PRN Reason: Nausea Last Admin: 06/22/19 22:16 Dose: 4 mg Sodium Chloride (Saline Flush) 10 ml FLUSH ASDIRECTED PRN PRN Reason: Keep Vein Open Sodium Chloride (Saline Flush) 2.5 ml FLUSH ASDIRECTED PRN PRN Reason: Keep Vein Open Discontinued Medications Al Hydroxide/Mg Hydroxide 15 (ml/ Lidocaine HCl 5 ml) 0 ml PO ONETIME ONE Stop: 06/21/19 18:36 Last Admin: 06/21/19 19:13 Dose: 1 each Dexamethasone (Dexamethasone) Confirm Administered Dose 20 mg .ROUTE .STK-MED ONE Stop: 06/23/19 12:00 Fentanyl (Sublimaze) Confirm Administered Dose 200 mcg .ROUTE .STK-MED ONE Stop: 06/23/19 12:00 Heparin Sodium (Porcine) (Heparin Sodium) 5,000 units SUBCUT Q8H HARLEEN Last Admin: 06/23/19 06:01 Dose: 5,000 units Sodium Chloride (Normal Saline) 1,000 mls @ 999 mls/hr IV STAT ONE Stop: 06/21/19 19:35 Last Admin: 06/21/19 19:11 Dose: 999 mls/hr Piperacillin Sod/Tazobactam (Sod 3.375 gm/ Sodium Chloride) 50 mls @ 100 mls/ hr IV ONETIME ONE Stop: 06/21/19 21:00 Last Admin: 06/21/19 21:00 Dose: 100 mls/hr Sodium Chloride (Normal Saline) 1,000 mls @ 125 mls/hr IV ASDIRECTED HARLEEN Last Admin: 06/22/19 15:24 Dose: 125 mls/hr Ketorolac Tromethamine (Toradol) 30 mg IVPUSH ONETIME ONE Stop: 06/21/19 20:14 Last Admin: 06/21/19 21:00 Dose: 30 mg Lidocaine HCl (Xylocaine-Mpf 1%) Confirm Administered Dose 5 ml .ROUTE .STK-MED ONE Stop: 06/23/19 12:00 Ondansetron HCl (Zofran) Confirm Administered Dose 4 mg .ROUTE .STK-MED ONE Stop: 06/23/19 12:00 Propofol (Diprivan 20 Ml) Confirm Administered Dose 200 mg .ROUTE .STK-MED ONE Stop: 06/23/19 12:00
[2019-06-23] MEDS ORDERED: Bupivacaine 25%/EPINEPHrine/PF 30 ML ONE (12:28)
[2019-06-23] MEDS ORDERED: Scopolamine 1.5 MG Transdermal Patch ONE (12:40)
[2019-06-23] MEDS ORDERED: Glycopyrrolate 0.2 MG/ML SDV ONE (13:01)
[2019-06-23] MEDS ORDERED: Neostigmine Methylsulfate 1 MG/ML 5 ML Syringe ONE (13:01)
[2019-06-23] MEDS ORDERED: HYDROmorphone 2 MG/ML Syringe ONE (13:23)
[2019-06-23] MEDS ORDERED: Morphine 4 MG/ML Syringe IVPUSH PRN (15:27)
[2019-06-23] MEDS ORDERED: Ondansetron 4 MG/2 ML SDV IVPUSH PRN (15:28)
[2019-06-23] MEDS ORDERED: Levofloxacin/Dextrose 5%-Water 750 MG in Premix Bag 1 BAG IV SCH (15:30)
--- NOTE | 2019-06-23 15:36 | PCM.OPNOTE ---
- General Post-Op/Procedure Note Date of Surgery/Procedure: 06/23/19 Operative Procedure(s): lap cristela Findings: gb was thickened wall, edematous, and severly attached to surrounding organs; a piece surgicell was inserted for hemostasis at end of surgery; [id number] Pre Op Diagnosis: acute and chronic cholecystitis Post-Op Diagnosis: Same Anesthesia Technique: General ET Tube Primary Surgeon: Speedy Coronel Complications: None Condition: Stable Free Text/Narrative:: Intake & Output 06/23/19 06/23/19 06/23/19 06:59 14:59 22:59 Intake Total 1310 Output Total 600 Balance 710
[2019-06-23] MEDS ORDERED: fentaNYL 100 MCG/2 ML SDV IVPUSH PRN (15:40)
[2019-06-23] MEDS ORDERED: HYDROmorphone 2 MG/ML Syringe IVPUSH ONE (15:41)
[2019-06-23] MEDS ORDERED: Acetaminophen 1,000 MG in Premix Bag 1 BAG IV ONE (16:14)
--- NOTE | 2019-06-23 16:25 | PCM.POSTAN ---
POST ANESTHESIA ASSESSMENT - MENTAL STATUS Mental Status: Alert, Oriented - VITAL SIGNS Vital Signs: Last Vital Signs Temp 37.5 C 06/23/19 15:16 Pulse 99 06/23/19 16:16 Resp 13 06/23/19 16:16 BP 121/69 06/23/19 16:16 Pulse Ox 94 L 06/23/19 16:16 - RESPIRATORY Respiratory Status: Respiratory Rate WNL, Airway Patent, O2 Saturation Stable - CARDIOVASCULAR CV Status: Pulse Rate WNL, Blood Pressure Stable - GASTROINTESTINAL GI Status: No Symptoms - PAIN Pain Score: 2 - POST OP HYDRATION Hydration Status: Adequate & Stable - OBSERVATIONS Free Text/Narrative:: no anesthesia problems
--- NOTE | 2019-06-23 16:31 | OR ---
SURGEON: Speedy Coronel MD DATE OF PROCEDURE: 06/23/2019 PREOPERATIVE DIAGNOSIS: Acute on chronic cholecystitis. POSTOPERATIVE DIAGNOSIS: Gangrenous cholecystitis. PROCEDURE PROPOSED: Laparoscopic cholecystectomy. PROCEDURE PERFORMED: Laparoscopic cholecystectomy. PRIMARY SURGEON: Speedy Coronel MD. COMPLICATIONS: None. FINDING: Gallbladder was severely edematous and thickened wall and attached to surrounding organs with 3 large stones and multiple small stones. A piece of Surgicel was inserted for hemostasis at the end of surgery. PROCEDURE NOTE: The patient was taken to the operating room and placed in the supine position. After the intubation of general endotracheal anesthesia, the patient's abdomen was prepped and draped in the usual sterile fashion. Using Optiview, a 12 mm trocar was placed supraumbilically and then followed with pneumoperitoneum. A 5 mm trocar was placed in the epigastrium and two 5 mm trocars placed in the right upper quadrant. The placement of the last three trocars was done under direct video supervision. Upon gaining entrance to the abdominal cavity, an extensive examination was then performed. The gallbladder was located and identified and retracted to the dome of the liver at the triangle of Calot. The cystic duct was clipped three more times and then using the endoscopic clip, was transected with placement of the endoscopic clip and transection was performed with care, ensuring the posterior prong of the instruments were clearly visualized prior to exercising the procedure. The gallbladder was dissected using electrocautery out of the liver bed and then removed using endoscopic bag through the umbilical site. The gallbladder was removed en bloc and there was no bile spillage and this was then followed with extensive irrigation until the bile was clear from blood and bile. The trocars were then removed under direct video supervision. The 12 mm umbilical site was then closed with deep stitches using 0 Vicryl followed with proximal stitches using 3-0 Vicryl and Dermabond. The other three trocar sites were closed with 3-0 Vicryl followed with approximation of skin with Dermabond. The patient was then awakened and extubated and transferred to the recovery room in hemodynamically stable condition. At the conclusion of the surgery, before closing the abdominal wound, instrument count and sponge count were done and were correct. The patient tolerated the procedure well and there were no intraoperative complications. Dr. Coronel was present through the whole procedure. Just before surgery, a timeout was called. The patient was identified and procedure identified and procedure started. Wound closing was using skin rasta in stead of 4-0 Monocryl mainly because of a long surgery time and also the infected gallbladder concerned about possible infection, so skin staple was used to approximate skin for the closing. WADE HUGHES /[id number]
[2019-06-23] MEDS: Lactated Ringers 1,000 ML IV SCH (16:43)
--- NOTE | 2019-06-23 18:00 | PCM.PN ---
- General Info Date of Service: 06/23/19 Subjective Update: No fevers. Pain tolerable, however, WBC increasing. Denied any chest pain, dyspnea. - Patient Data Vitals - Most Recent: Last Vital Signs Temp 37.5 C 06/23/19 15:16 Pulse 99 06/23/19 16:16 Resp 13 06/23/19 16:16 BP 121/69 06/23/19 16:16 Pulse Ox 94 L 06/23/19 16:16 Weight - Most Recent: 86.183 kg I&O - Last 24 Hours: Intake & Output 06/23/19 06/23/19 06/23/19 06:59 14:59 22:59 Intake Total 1310 1700 Output Total 600 100 Balance 710 -100 1700 Lab Results Last 24 Hours: Laboratory Results - last 24 hr 06/23/19 06/23/19 06/23/19 Range/Units 06:08 06:08 11:10 WBC 18.52 H (4.0-11.0) K/uL RBC 4.12 L (4.30-5.90) M/uL Hgb 12.2 (12.0-16.0) g/dL Hct 35.1 L (36.0-46.0) % MCV 85.2 (80.0-98.0) fL MCH 29.6 (27.0-32.0) pg MCHC 34.8 (31.0-37.0) g/dL RDW Std Deviation 40.0 (28.0-62.0) fl RDW Coeff of [place] 13 (11.0-15.0) % Plt Count 217 (150-400) K/uL MPV 9.40 (7.40-12.00) fL Neut % (Auto) 87.8 H (48.0-80.0) % Lymph % (Auto) 5.6 L (16.0-40.0) % [place] % (Auto) 6.4 (0.0-15.0) % Eos % (Auto) 0.1 (0.0-7.0) % Baso % (Auto) 0.1 (0.0-1.5) % Neut # (Auto) 16.3 H (1.4-5.7) K/uL Lymph # (Auto) 1.0 (0.6-2.4) K/uL [place] # (Auto) 1.2 H (0.0-0.8) K/uL Eos # (Auto) 0.0 (0.0-0.7) K/uL Baso # (Auto) 0.0 (0.0-0.1) K/uL Nucleated RBC % 0.0 /100WBC Nucleated RBCs # 0 K/uL Sodium 142 (136-145) mmol/L Potassium 3.7 (3.5-5.1) mmol/L Chloride 106 (98-107) mmol/L Carbon Dioxide 23.9 (21.0-32.0) mmol/L BUN 7 (7.0-18.0) mg/dL Creatinine 0.9 (0.6-1.0) mg/dL Est Cr Clr Drug Dosing 77.95 mL/min Estimated GFR (MDRD) > 60.0 ml/min Glucose 132 H (74-106) mg/dL Calcium 7.5 L (8.5-10.1) mg/dL Total Bilirubin 0.8 (0.2-1.0) mg/dL AST 14 L (15-37) IU/L ALT 26 (14-63) IU/L Alkaline Phosphatase 57 (46-116) U/L Total Protein 6.4 (6.4-8.2) g/dL Albumin 2.5 L (3.4-5.0) g/dL Globulin 3.9 (2.6-4.0) g/dL Albumin/Globulin Ratio 0.6 L (0.9-1.6) Urine HCG, Qual NEGATIVE (NEGATIVE) Tayo Results Last 24 Hours: Microbiology 06/21/19 21:57 Aerobic Blood Culture - Preliminary Blood - Venous - Lab Draw NO GROWTH AFTER 1 DAY Anaerobic Blood Culture - Preliminary NO GROWTH AFTER 1 DAY 06/21/19 21:45 Aerobic Blood Culture - Preliminary Blood - Venous NO GROWTH AFTER 1 DAY Anaerobic Blood Culture - Preliminary NO GROWTH AFTER 1 DAY Med Orders - Current: Current Medications Acetaminophen (Tylenol) 650 mg PO Q4H PRN PRN Reason: Pain Last Admin: 06/22/19 20:36 Dose: 650 mg Docusate Sodium (Colace) 100 mg PO DAILY [facility] Piperacillin Sod/Tazobactam (Sod 3.375 gm/ Sodium Chloride) 50 mls @ 100 mls/ hr IV Q6H [facility] Last Admin: 06/23/19 16:19 Dose: Not Given Lactated Ringer's (Ringers, Lactated) 1,000 mls @ 125 mls/hr IV ASDIRECTED [facility] Last Admin: 06/23/19 16:43 Dose: 125 mls/hr Levofloxacin/Dextrose 750 mg/ (Premix) 150 mls @ 100 mls/hr IV Q24H [facility] Last Admin: 06/23/19 17:08 Dose: 100 mls/hr Morphine Sulfate (Morphine) 4 mg IVPUSH Q6H PRN PRN Reason: Breakthrough Pain Ondansetron HCl (Zofran) 4 mg IVPUSH Q8H PRN PRN Reason: Nausea/Vomiting Oxycodone/Acetaminophen (Percocet 325-5 Mg) 1 tab PO Q6H PRN PRN Reason: Pain Scopolamine (Transderm-Scop) 1.5 mg TRDERM Q72H PRN PRN Reason: Nausea Sodium Chloride (Saline Flush) 10 ml FLUSH ASDIRECTED PRN PRN Reason: Keep Vein Open Sodium Chloride (Saline Flush) 2.5 ml FLUSH ASDIRECTED PRN PRN Reason: Keep Vein Open Discontinued Medications Al Hydroxide/Mg Hydroxide 15 (ml/ Lidocaine HCl 5 ml) 0 ml PO ONETIME ONE Stop: 06/21/19 18:36 Last Admin: 06/21/19 19:13 Dose: 1 each Dexamethasone (Dexamethasone) Confirm Administered Dose 20 mg .ROUTE .STK-MED ONE Stop: 06/23/19 12:00 Fentanyl (Sublimaze) Confirm Administered Dose 200 mcg .ROUTE .STK-MED ONE Stop: 06/23/19 12:00 Fentanyl (Sublimaze) 50 - 100 mcg IVPUSH Q5M PRN PRN Reason: Pain (severe 7-10) Glycopyrrolate (Robinul) Confirm Administered Dose 0.6 mg .ROUTE .STK-MED ONE Stop: 06/23/19 13:02 Heparin Sodium (Porcine) (Heparin Sodium) 5,000 units SUBCUT Q8H [facility] Last Admin: 06/23/19 06:01 Dose: 5,000 units Hydromorphone HCl (Dilaudid) 0.5 mg IVPUSH Q3H PRN PRN Reason: Pain Last Admin: 06/23/19 11:58 Dose: 0.5 mg Hydromorphone HCl (Dilaudid) Confirm Administered Dose 2 mg .ROUTE .STK-MED ONE Stop: 06/23/19 13:24 Hydromorphone HCl (Dilaudid) 2 mg IVPUSH ONETIME ONE Stop: 06/23/19 15:42 Last Admin: 06/23/19 16:38 Dose: Not Given Sodium Chloride (Normal Saline) 1,000 mls @ 999 mls/hr IV STAT ONE Stop: 06/21/19 19:35 Last Admin: 06/21/19 19:11 Dose: 999 mls/hr Piperacillin Sod/Tazobactam (Sod 3.375 gm/ Sodium Chloride) 50 mls @ 100 mls/ hr IV ONETIME ONE Stop: 06/21/19 21:00 Last Admin: 06/21/19 21:00 Dose: 100 mls/hr Sodium Chloride (Normal Saline) 1,000 mls @ 125 mls/hr IV ASDIRECTED [facility] Last Admin: 06/22/19 15:24 Dose: 125 mls/hr Sodium Chloride (Normal Saline) 1,000 mls @ 125 mls/hr IV CONTINUOUS [facility] Last Infusion: 06/23/19 10:00 Dose: 150 mls/hr Bupivacaine HCl/Epinephrine Bitart (Sensorc Mpf 0.25%-Epi 1:[id number]) Confirm Administered Dose 30 mls @ as directed .ROUTE .STK-MED ONE Stop: 06/23/19 12:29 Acetaminophen 1,000 mg/ Premix 100 mls @ 400 mls/hr IV NOW ONE Stop: 06/23/19 16:28 Last Admin: 06/23/19 16:43 Dose: 400 mls/hr Ketorolac Tromethamine (Toradol) 30 mg IVPUSH ONETIME ONE Stop: 06/21/19 20:14 Last Admin: 06/21/19 21:00 Dose: 30 mg Lidocaine HCl (Xylocaine-Mpf 1%) Confirm Administered Dose 5 ml .ROUTE .STK-MED ONE Stop: 06/23/19 12:00 Neostigmine Methylsulfate (Neostigmine) Confirm Administered Dose 5 mg .ROUTE .STK-MED ONE Stop: 06/23/19 13:02 Ondansetron HCl (Zofran) 4 mg IVPUSH Q4H PRN PRN Reason: Nausea Last Admin: 06/22/19 22:16 Dose: 4 mg Ondansetron HCl (Zofran) Confirm Administered Dose 4 mg .ROUTE .STK-MED ONE Stop: 06/23/19 12:00 Propofol (Diprivan 20 Ml) Confirm Administered Dose 200 mg .ROUTE .STK-MED ONE Stop: 06/23/19 12:00 Scopolamine (Transderm-Scop) Confirm Administered Dose 1.5 mg .ROUTE .STK-MED ONE Stop: 06/23/19 12:41 - Exam General: Alert, Oriented, Cooperative, No Acute Distress Lungs: Clear to Auscultation, Normal Respiratory Effort. No: Crackles, Wheezing Cardiovascular: Regular Rate, Regular Rhythm GI/Abdominal Exam: Other (tender RUQ. ) Extremities: No Pedal Edema - Problem List Review Problem List Initiated/Reviewed/Updated: Yes - My Orders Last 24 Hours: My Active Orders 06/24/19 05:11 CBC WITH AUTO DIFF [HEME] AM COMPREHENSIVE METABOLIC PN,CMP [CHEM] AM 06/25/19 05:11 CBC WITH AUTO DIFF [HEME] AM COMPREHENSIVE METABOLIC PN,CMP [CHEM] AM - Plan Plan:: A: 1. Acute cholecystitis P: 1. Patient underwent laparoscopic cholecystectomy by Dr. Coronel this afternoon. Found gangrenous gallbladder. Medical care has been transitioned to Dr. Coronel who will be primary during rest of hospitalization.
[2019-06-23] MEDS: Acetaminophen/oxyCODONE 325-5 MG Tab PO PRN (20:29)
[2019-06-24] MEDS: Acetaminophen/oxyCODONE 325-5 MG Tab PO PRN ×2 (02:42→08:32)
[2019-06-24] MEDS: Lactated Ringers 1,000 ML IV SCH (02:43)
[2019-06-24] MEDS: Piperacillin/Tazobactam 3.375 GM in Sodium Chloride 0.9% 50 ML IV SCH ×2 (02:44→08:26)
[2019-06-24 06:28] LABS: BLOOD UREA NITROGEN,BUN 9 mg/dL (7.0-18.0); CARBON DIOXIDE,CO2 28.3 mmol/L (21.0-32.0); CHLORIDE,CL 105 mmol/L (98-107); GLUCOSE RANDOM 193 mg/dL (74-106); POTASSIUM,K 4.2 mmol/L (3.5-5.1); SODIUM,NA 139 mmol/L (136-145)
--- NOTE | 2019-06-24 07:06 | PCM48HPAN ---
Post Anesthesia Note - EVALUATION WITHIN 48HRS OF ANESTHETIC Vital Signs in Normal Range: Yes Patient Participated in Evaluation: Yes Respiratory Function Stable: Yes Airway Patent: Yes Cardiovascular Function Stable: Yes Hydration Status Stable: Yes Pain Control Satisfactory: Yes Nausea and Vomiting Control Satisfactory: Yes Mental Status Recovered: Yes Vital Signs: Last Vital Signs Temp 98.5 F 06/24/19 04:27 Pulse 80 06/24/19 04:27 Resp 16 06/24/19 04:27 BP 100/56 L 06/24/19 04:27 Pulse Ox 94 L 06/24/19 04:27
[2019-06-24] MEDS ORDERED: Docusate Sodium 100 MG Cap PO SCH (09:00)
--- NOTE | 2019-06-24 10:35 | PCM.DCSUM1 ---
Discharge Summary - Hospital Course Brief History: see admission h/p for details, in summary, pt present w RUQ X days to ed, jorgensen us/ct noted for cholecystitis, and was admitted to med for further management; surgery was consulted Diagnosis: Stroke: No - Discharge Data Discharge Date: 06/24/19 Discharge Disposition: Home, Self-Care 01 Condition: Stable - Referral to Home Health Primary Care Physician: PCP Not In Area - Patient Summary/Data Operative Procedure(s) Performed: lap cristela Consults: Consultations 06/22/19 11:40 Consult to Physician [CONS] Routine Hospital Course: pt was put to iv abx, and responded somewhat; pain mildly better, but wbc remained hi at 18, and started to run temp; pt was taken to or s/p lap cristela; the next day, pt remarked pain is so much better; jayson po; home on pain script; fu next wk to dc rasta - Patient Instructions Diet: Regular Diet as Tolerated Diet, Other: gen liquid X 2 days, then adv as jayson; avoid greasy food X 3 wks Activity: No Lifting Over 10 Pounds, No Strenuous Activities Driving: Do Not Drive Showering/Bathing: May Shower in 3 Days Wound/Incision Care: Keep Operative Site/Wound Site Clean and Dry Notify Provider of: Fever, Drainage, Nausea and/or Vomiting - Discharge Plan Home Medications: Home Meds Cholecalciferol (Vitamin D3) [Vitamin D3] 1 tab PO DAILY 06/21/19 [History] Dextroamphetamine/Amphetamine [Adderall] 30 mg PO DAILY 06/21/19 [History] Levothyroxine Sodium [Synthroid] 175 mcg PO DAILY 06/21/19 [History] Losartan [Cozaar] 50 mg PO DAILY 06/21/19 [History] hydroCHLOROthiazide [Hydrochlorothiazide] 50 mg PO DAILY 06/21/19 [History] metFORMIN HCl [Metformin HCl] 1,000 mg PO BID 06/21/19 [History] Forms: ED Department Discharge Referrals: PCP,Not In Area [Primary Care Provider] - Speedy Coronel MD [Physician] - - Discharge Summary/Plan Comment DC Time >30 min.: Yes - General Info Date of Service: 06/24/19 Functional Status: Reports: Pain Controlled - Review of Systems Gastrointestinal: Reports: No Symptoms (denied n/v) - Patient Data Vitals - Most Recent: Last Vital Signs Temp 98.2 F 06/24/19 07:57 Pulse 80 06/24/19 07:57 Resp 16 06/24/19 07:57 BP 100/57 L 06/24/19 07:57 Pulse Ox 92 L 06/24/19 07:57 Weight - Most Recent: 217 lb 2.485 oz I&O - Last 24 hours: Intake & Output 06/23/19 06/24/19 06/24/19 22:59 06:59 14:59 Intake Total 1750 1826 Output Total 700 Balance 1750 1126 Lab Results - Last 24 hrs: Laboratory Results - last 24 hr 06/23/19 06/24/19 06/24/19 Range/Units 11:10 05:39 05:39 WBC 12.75 H (4.0-11.0) K/uL RBC 3.74 L (4.30-5.90) M/uL Hgb 10.9 L (12.0-16.0) g/dL Hct 31.6 L (36.0-46.0) % MCV 84.5 (80.0-98.0) fL MCH 29.1 (27.0-32.0) pg MCHC 34.5 (31.0-37.0) g/dL RDW Std Deviation 39.3 (28.0-62.0) fl RDW Coeff of [place] 13 (11.0-15.0) % Plt Count 214 (150-400) K/uL MPV 9.70 (7.40-12.00) fL Neut % (Auto) 86.0 H (48.0-80.0) % Lymph % (Auto) 6.4 L (16.0-40.0) % [place] % (Auto) 7.6 (0.0-15.0) % Eos % (Auto) 0.0 (0.0-7.0) % Baso % (Auto) 0.0 (0.0-1.5) % Neut # (Auto) 11.0 H (1.4-5.7) K/uL Lymph # (Auto) 0.8 (0.6-2.4) K/uL [place] # (Auto) 1.0 H (0.0-0.8) K/uL Eos # (Auto) 0.0 (0.0-0.7) K/uL Baso # (Auto) 0.0 (0.0-0.1) K/uL Nucleated RBC % 0.0 /100WBC Nucleated RBCs # 0 K/uL Sodium 139 (136-145) mmol/L Potassium 4.2 (3.5-5.1) mmol/L Chloride 105 (98-107) mmol/L Carbon Dioxide 28.3 (21.0-32.0) mmol/L BUN 9 (7.0-18.0) mg/dL Creatinine 0.9 (0.6-1.0) mg/dL Est Cr Clr Drug Dosing 77.95 mL/min Estimated GFR (MDRD) > 60.0 ml/min Glucose 193 H (74-106) mg/dL Calcium 7.7 L (8.5-10.1) mg/dL Total Bilirubin 0.5 (0.2-1.0) mg/dL AST 100 H (15-37) IU/L ALT 105 H (14-63) IU/L Alkaline Phosphatase 54 (46-116) U/L Total Protein 6.2 L (6.4-8.2) g/dL Albumin 2.1 L (3.4-5.0) g/dL Globulin 4.1 H (2.6-4.0) g/dL Albumin/Globulin Ratio 0.5 L (0.9-1.6) Urine HCG, Qual NEGATIVE (NEGATIVE) ALMITA Results - Last 24 hrs: Microbiology 06/21/19 21:57 Aerobic Blood Culture - Preliminary Blood - Venous - Lab Draw NO GROWTH AFTER 2 DAYS Anaerobic Blood Culture - Preliminary NO GROWTH AFTER 2 DAYS 06/21/19 21:45 Aerobic Blood Culture - Preliminary Blood - Venous NO GROWTH AFTER 2 DAYS Anaerobic Blood Culture - Preliminary NO GROWTH AFTER 2 DAYS Med Orders - Current: Current Medications Acetaminophen (Tylenol) 650 mg PO Q4H PRN PRN Reason: Pain Last Admin: 06/22/19 20:36 Dose: 650 mg Docusate Sodium (Colace) 100 mg PO DAILY [facility] Last Admin: 06/24/19 08:26 Dose: 100 mg Piperacillin Sod/Tazobactam (Sod 3.375 gm/ Sodium Chloride) 50 mls @ 100 mls/ hr IV Q6H [facility] Last Admin: 06/24/19 08:26 Dose: 100 mls/hr Lactated Ringer's (Ringers, Lactated) 1,000 mls @ 125 mls/hr IV ASDIRECTED [facility] Last Admin: 06/24/19 02:43 Dose: 125 mls/hr Levofloxacin/Dextrose 750 mg/ (Premix) 150 mls @ 100 mls/hr IV Q24H [facility] Last Admin: 06/23/19 17:08 Dose: 100 mls/hr Morphine Sulfate (Morphine) 4 mg IVPUSH Q6H PRN PRN Reason: Breakthrough Pain Ondansetron HCl (Zofran) 4 mg IVPUSH Q8H PRN PRN Reason: Nausea/Vomiting Oxycodone/Acetaminophen (Percocet 325-5 Mg) 1 tab PO Q6H PRN PRN Reason: Pain Last Admin: 06/24/19 08:32 Dose: 1 tab Scopolamine (Transderm-Scop) 1.5 mg TRDERM Q72H PRN PRN Reason: Nausea Sodium Chloride (Saline Flush) 10 ml FLUSH ASDIRECTED PRN PRN Reason: Keep Vein Open Sodium Chloride (Saline Flush) 2.5 ml FLUSH ASDIRECTED PRN PRN Reason: Keep Vein Open Discontinued Medications Al Hydroxide/Mg Hydroxide 15 (ml/ Lidocaine HCl 5 ml) 0 ml PO ONETIME ONE Stop: 06/21/19 18:36 Last Admin: 06/21/19 19:13 Dose: 1 each Dexamethasone (Dexamethasone) Confirm Administered Dose 20 mg .ROUTE .STK-MED ONE Stop: 06/23/19 12:00 Fentanyl (Sublimaze) Confirm Administered Dose 200 mcg .ROUTE .STK-MED ONE Stop: 06/23/19 12:00 Fentanyl (Sublimaze) 50 - 100 mcg IVPUSH Q5M PRN PRN Reason: Pain (severe 7-10) Glycopyrrolate (Robinul) Confirm Administered Dose 0.6 mg .ROUTE .STK-MED ONE Stop: 06/23/19 13:02 Heparin Sodium (Porcine) (Heparin Sodium) 5,000 units SUBCUT Q8H [facility] Last Admin: 06/23/19 06:01 Dose: 5,000 units Hydromorphone HCl (Dilaudid) 0.5 mg IVPUSH Q3H PRN PRN Reason: Pain Last Admin: 06/23/19 11:58 Dose: 0.5 mg Hydromorphone HCl (Dilaudid) Confirm Administered Dose 2 mg .ROUTE .STK-MED ONE Stop: 06/23/19 13:24 Hydromorphone HCl (Dilaudid) 2 mg IVPUSH ONETIME ONE Stop: 06/23/19 15:42 Last Admin: 06/23/19 16:38 Dose: Not Given Sodium Chloride (Normal Saline) 1,000 mls @ 999 mls/hr IV STAT ONE Stop: 06/21/19 19:35 Last Admin: 06/21/19 19:11 Dose: 999 mls/hr Piperacillin Sod/Tazobactam (Sod 3.375 gm/ Sodium Chloride) 50 mls @ 100 mls/ hr IV ONETIME ONE Stop: 06/21/19 21:00 Last Admin: 06/21/19 21:00 Dose: 100 mls/hr Sodium Chloride (Normal Saline) 1,000 mls @ 125 mls/hr IV ASDIRECTED [facility] Last Admin: 06/22/19 15:24 Dose: 125 mls/hr Sodium Chloride (Normal Saline) 1,000 mls @ 125 mls/hr IV CONTINUOUS [facility] Last Infusion: 06/23/19 10:00 Dose: 150 mls/hr Bupivacaine HCl/Epinephrine Bitart (Sensorc Mpf 0.25%-Epi 1:[id number]) Confirm Administered Dose 30 mls @ as directed .ROUTE .STK-MED ONE Stop: 06/23/19 12:29 Acetaminophen 1,000 mg/ Premix 100 mls @ 400 mls/hr IV NOW ONE Stop: 06/23/19 16:28 Last Admin: 06/23/19 16:43 Dose: 400 mls/hr Ketorolac Tromethamine (Toradol) 30 mg IVPUSH ONETIME ONE Stop: 06/21/19 20:14 Last Admin: 06/21/19 21:00 Dose: 30 mg Lidocaine HCl (Xylocaine-Mpf 1%) Confirm Administered Dose 5 ml .ROUTE .STK-MED ONE Stop: 06/23/19 12:00 Neostigmine Methylsulfate (Neostigmine) Confirm Administered Dose 5 mg .ROUTE .STK-MED ONE Stop: 06/23/19 13:02 Ondansetron HCl (Zofran) 4 mg IVPUSH Q4H PRN PRN Reason: Nausea Last Admin: 06/22/19 22:16 Dose: 4 mg Ondansetron HCl (Zofran) Confirm Administered Dose 4 mg .ROUTE .STK-MED ONE Stop: 06/23/19 12:00 Propofol (Diprivan 20 Ml) Confirm Administered Dose 200 mg .ROUTE .STK-MED ONE Stop: 06/23/19 12:00 Scopolamine (Transderm-Scop) Confirm Administered Dose 1.5 mg .ROUTE .STK-MED ONE Stop: 06/23/19 12:41 - Exam GI/Abdominal Exam: Soft, Non-Tender (wound cdi)
== END 2019-06-24 12:30 | disposition home or self-care (01) | DRG 854 ==
LOC: MW.ED 18:14 → MW.MS 20:54 → OBSVTOIN 06-22 13:26 → MW.MS 06-22 15:25
PROVIDERS: ADMIT Surgery; ATTEND Surgery
PROC: 0FT44ZZ Resection of Gallbladder, Percutaneous Endoscopic Approach (ICD-10-PCS; principal; 2019-06-23)
DX: A41.9 Sepsis, unspecified organism (principal); K80.12 Calculus of gallbladder with acute and chronic cholecystitis without obstruction; I10 Essential (primary) hypertension; E11.9 Type 2 diabetes mellitus without complications; F98.8 Other specified behavioral and emotional disorders with onset usually occurring in childhood and adolescence; E03.9 Hypothyroidism, unspecified; K82.A1 Gangrene of gallbladder in cholecystitis; Z79.890 Hormone replacement therapy; Z79.84 Long term (current) use of oral hypoglycemic drugs; Z79.899 Other long term (current) drug therapy; Z85.850 Personal history of malignant neoplasm of thyroid
CPT/HCPCS: 36415; 74176; 74176-26; 76705; 76705-26; 80053; 81003; 81025; 83605; 83690; 84484; 85025; 87040; 88304; 99284; A9270-GY; J0131; J1100; J1170; J1644; J1885; J1956; J2001; J2405; J2543; J2704; J3010; J3490; J7040; J7050; J7120